=== PATIENT | female | born 1975 | race Caucasian/White ===

== ENCOUNTER 2017-06-14 13:02 | Outpatient (CLI) | payer BC | END 2017-06-14 13:03 | disposition home or self-care (01) | LOC: LABLEX 13:02 | PROVIDERS: ATTEND Nurse Practitioner | DX: Z01.419 Encounter for gynecological examination (general) (routine) without abnormal findings (principal) | CPT/HCPCS: 88142; G0123 ==

== ENCOUNTER 2017-06-14 13:02 | Outpatient (CLI) | payer BC | END 2017-06-14 13:03 | disposition home or self-care (01) | LOC: LABLEX 13:02 | PROVIDERS: ATTEND Nurse Practitioner | DX: Z12.4 Encounter for screening for malignant neoplasm of cervix (principal) | CPT/HCPCS: 87624 ==